=== PATIENT | female | born 1990 | race Hispanic/Latino ===

== ENCOUNTER 2020-01-15 23:41 | Emergency (ER) | payer OTHER ==
[~2020-01-15] VITALS: Ht 160 cm; Wt 104.3 kg
[~2020-01-15 23:41] MED LIST: CEPHALEXIN500 MG PO
--- NOTE | 2020-01-16 00:06 | Emergency Department Note ---
History of Present Illnes History of Present Illness Chief Complaint: Genitourinary History of Present Illness This is a 29 year old female dysuria . Onset (how long ago): day(s) (2) Location: suprapubic Quality: dull Radiation: Denies non-radiation, Denies back, Denies neck, Denies extremity, Denies abdomen, Denies periumbilical, Denies flank, Denies proximal, Denies distal, Denies other Severity: mild Onset quality: gradual Duration (how long): day(s) (2) Timing of current episode: constant Progression: worsening Chronicity: new Context: Denies recent illness, Denies recent surgery, Denies recent immobilization, Denies recent travel, Denies trauma/injury, Denies new medications, Denies hx of DVT/PE, Denies non-compliance w/ medications, Denies other Relieving factors: none Exacerbating factors: none Associated symptoms: Denies denies other symptoms, Denies confusion, Denies chest pain, Denies cough, Denies diaphoresis, Denies fever/chills, Denies headaches, Denies loss of appetite, Denies malaise, Denies nausea/vomiting, Denies rash, Denies seizure, Denies shortness of breath, Denies syncope, Denies weakness, Denies other Treatments prior to arrival: none Past Medical/Family History Physician Review I have reviewed the patient's past medical and family history. Any updates have been documented here. Past Medical History Past Medical History: None Past Surgical History: None Social History Smoking Cessation: Never Smoker Alcohol Use: None Other Last Tetanus: UNK Review of Systems Review of Systems Constitutional: Reports no symptoms EENTM: Reports no symptoms Cardiovascular: Reports no symptoms Respiratory: Reports no symptoms Gastrointestinal: Reports no symptoms Genitourinary: Reports as per HPI Musculoskeletal: Reports no symptoms Integumentary: Reports no symptoms Neurological: Reports no symptoms Psychological: Reports no symptoms Endocrine: Reports no symptoms Hematological/Lymphatic: Reports no symptoms Physical Exam Related Data Allergies: Coded Allergies: No Known Allergies (Unverified , 05/16/19) Vital signs reviewed: Yes Physical Exam CONSTITUTIONAL Constitutional: Present well-developed, Present well-nourished HENT HENT: Present normocephalic, Present atraumatic, Present oropharynx clear/moist, Present nose normal HENT L/R: Present left ext ear normal, Present right ext ear normal EYES Eyes: Reports PERRL, Reports conjunctivae normal NECK Neck: Present ROM normal PULMONARY Pulmonary: Present effort normal, Present breath sounds normal CARDIOVASCULAR Cardiovascular: Present regular rhythm, Present heart sounds normal, Present capillary refill normal, Present normal rate GASTROINTESTINAL Abdominal: Present soft, Present nontender, Present bowel sounds normal GENITOURINARY Genitourinary: Present exam deferred SKIN Skin: Present warm, Present dry MUSCULOSKELETAL Musculoskeletal: Present ROM normal NEUROLOGICAL Neurological: Present alert, Present oriented x 3, Present no gross motor or sensory deficits PSYCHOLOGICAL Psychological: Present mood/affect normal, Present judgement normal Assessment & Plan Medical Decision Making MDM uti cystitis Reassessment Reassessment better Assessment & Plan Final Impression: (1) Cystitis, acute (2) UTI (urinary tract infection) Depart Disposition: HOME, SELF-skilled nursing Meds Active Scripts Cephalexin (CEPHALEXIN) 500 Mg Capsule, 500 MG PO TID for 7 Days, #21 CAP Prov:NEELAM CHRISTIANSON MD 05/16/19 SUSAN MARTINEZ MD Jan 16, 2020 00:06
[2020-01-16] MEDS ORDERED: MACROBID 100 M100 MG PO (00:07)
--- OUTSIDE RECORDS SUMMARY | 2020-01-16 10:47 | XMS REPORT | Clinical Summary ---
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 unspecified chronicity, unspecified seasonality, unspecified trigger Active fluticasone (FLONASE) 50 Use 1 [place] 16 g 0 1 mcg/actuation nasal in each 7 sprayIndications: nostril Allergic rhinitis, daily. unspecified chronicity, unspecified seasonality, unspecified trigger Active Problems No known active problems Immunizations Name Administration Dates Next Due DTP Diphtheria, Tetanus, 11/15/1994, 01/16/1994, Pertussis Vaccine Hepatitis B Vaccine 12/15/1997, 12/11/1996, Hib Haemophilus 01/16/1994, 08/10/1992 Influenzae Type B Influenza Vaccine 03/12/2006 MMR Measles, Mumps, 12/14/1995, 01/16/1994 Rubella Vaccine PPD 11/10/2005 Poliovirus Ipv 12/14/1995, 11/15/1994, , 08/10/1992 Td Tetanus, diphtheria 12/13/2005 Toxoids Vaccine Tdap Tetanus, diphtheria, 11/10/2005 acellular pertussis Vaccine Varicella Vaccine Pedi In 01/07/1996 Clinic Family History Medical History Relation Name Comments Cancer Father pancreas cancer. Diabetes Father Arthritis Mother Asthma Mother Diabetes Mother Heart Mother Psychiatry Mother Hypothyroid Sister Relation Name Status Comments Father Mother Sister Social History Date Tobacco Use Types Packs/Day Years Used Never Smoker Smokeless Tobacco: Never Used Drinks/Week oz/Week Comments Alcohol Use No Food Insecurity Answer Date Recorded Within the past 12 months, you worried that your Never rosas e 03/14/2017 food would run out before you got money to buy more. Within the past 12 months, the food you bought Never true 03/14/2017 just didn't last and you didn't have mo naila to get more. Sex Assigned at Date Recorded Not on file Industry Job Start Date Occupation Not on file Not on file Not on file Travel End Travel History Travel Start No recent travel history available. Last Filed Vital Signs Not on file Plan of Treatment Health Maintenance Due Date Last Done Comments Cervical Cancer Scrn (3 09/04/2012 Yrs) IMM Influenza Seasonal 01/29/2020 03/12/2006 Oct to June (>/= 19 yrs) Results Not on fileafter 01/15/2019
--- OUTSIDE RECORDS SUMMARY | 2020-01-16 10:47 | XMS REPORT | Continuity of Care Document ---
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 Problems Condition Name Condition Details Condition Category Status Onset Date Resolution Date Last Treatment Date Treating Clinician Comments Source Acute cystitis Problem Active C [facility] Urinary tract infection Problem Active [facility] Allergies, Adverse Reactions, Alerts Allergy Name Allergy Type Status Severity Reaction(s) Onset Date Inacti ve Date Treating Clinician Comments Source No Known Allergies DA Active U 2014-10-31 00:00:[address] [facility] Family History Family Member Diagnosis Comments Start Date Stop Date Source Natural father Cancer [facility] Natural father Diabetes [facility] Natural mother Arthritis [facility] Natural mother Asthma [facility] Natural mother Diabetes [facility] Natural mother Heart [facility] Natural mother Psychiatry [facility] Natural sister Hypothyroid [facility] Social History Social Habit Start Date Stop Date Quantity Comments Source Sex Assigned At [facility] Alcohol intake 2018-10-02 00:00:00 2018-10-02 00:00:00 Current non-drinker of alcohol (finding) [facility] History SDOH Food Worry 2017-03-14 00:00:00 2017-03-14 00:00:00 1 [facility] History SDOH Food Scarcity 2017-03-14 00:00:00 2017-03-14 00:00:00 1 [facility] Smoking Status Start Date Stop Date Source Never smoker [facility] Medications Ordered Medication Name Filled Medication Name Start Date Stop Da te Current Medication? Ordering Clinician Indication Dosage Frequency Signature (SIG) Comments Components Source Nitrofurantoin Monohyd/M-Cryst (Macrobid 100 Mg Capsul e) 100 Mg CAPSULE Nitrofurantoin Monohyd/M-Cryst (Macrobid 100 Mg Capsule) 100 Mg CAPSULE 2020-01-16 00:07:00 Yes 100 Twice Daily With M eals [facility] Cephalexin Cephalexin 2019-05-15 23:10:00 Yes [address] A Day [facility] loratadine (CLARITIN) 10 mg tablet 2017-03-14 00:00:00 Yes Allergic rhinitis, unspecified chronicity, unspecified seasonality, unspecified trigger 10mg QD Take 1 tablet by mouth daily. [facility] fluticasone (FLONASE) 50 mcg/actuation nasal spray 2017-02 00:00:00 Yes Allergic rhinitis, unspecified chronicit y, unspecified seasonality, unspecified trigger 1{spray} QD Use 1 [place] in each nostril daily. [facility] Immunizations Ordered Immunization Name Filled Immunization Name Date Status Comments Source Influenza Vaccine 2006-03-12 00:00:00 Completed [facility] Td Tetanus, diphtheria Toxoids Vaccine 2005-12-13 00:00:00 [facility] Tdap Tetanus, diphtheria, acellular pertussis Vaccine 2005-11-10 00:00:00 Completed [facility] PPD 2005-11-10 00:00:00 Completed [facility] Hepatitis B Vaccine 1997-12-15 00:00:00 Completed [facility] Hepatitis B Vaccine 1996-12-11 00:00:00 Completed [facility] Varicella Vaccine Pedi In Clinic 1996-01-07 00:00:00 Compl eted [facility] MMR Measles, Mumps, Rubella Vaccine 1995-12-14 00:00:00 Co mpleted [facility] Poliovirus Ipv 1995-12-14 00:00:00 Completed [facility] DTP Diphtheria, Tetanus, Pertussis Vaccine 1994-11-15 00:0 0:00 Completed [facility] Poliovirus Ipv 1994-11-15 00:00:00 Completed [facility] DTP Diphtheria, Tetanus, Pertussis Vaccine 1994-01-16 00:0 0:00 Completed [facility] Hib Haemophilus Influenzae Type B 1994-01-16 00:00:00 Comp leted [facility] MMR Measles, Mumps, Rubella Vaccine 1994-01-16 00:00:00 Co mpleted [facility] Poliovirus Ipv 1994-01-16 00:00:00 Completed [facility] DTP Diphtheria, Tetanus, Pertussis Vaccine 1992-08-10 00:0 0:00 Completed [facility] Hib Haemophilus Influenzae Type B 1992-08-10 00:00:00 Comp leted [facility] Poliovirus Ipv 1992-08-10 00:00:00 Completed [facility] Hepatitis B Vaccine 1991 00:00:00 Completed [facility] Vital Signs Vital Name Observation Time Observation Value Comments Source Weight 2020-01-15 23:50:00 230 [lb_av] [facility] BMI (Body Mass Index) 2020-01-15 23:50:00 40.7 kg/m2 [facility] Procedures This patient has no known procedures. Plan of Care Planned Activity Planned Date Details Comments Source Future Scheduled Test 2020-01-29 00:00:00 IMM Influenza Seas onal Jan to June (>/= 19 yrs) [code = IMM Influenza Seasonal Jan to June (>/= 19 yrs)] [facility] Future Scheduled Test 2012-09-04 00:00:00 Screening for aleks gnant neoplasm of cervix (procedure) [code = [id number]] [facility] Instructions Urinary Tract Infection - Women [facility] Encounters Start Date/Time End Date/Time Encounter Type Admission Type Attendi [facility] Care Department Encounter ID Source 2020-01-16 00:00:00 2020-01-16 05:53:00 Departed Emergency Room [facility] [id number] [facility] 2019-05-15 22:39:00 2019-05-15 23:30:00 Departed Emergency Room [facility] [id number] [facility] 2017-03-15 00:00:00 2017-03-15 00:00:00 Outpatient [facility] [id number] [facility] 2017-03-14 10:00:55 2017-03-14 10:00:55 Outpatient [facility] [id number] [facility] Results This patient has no known results.
== END 2020-01-16 05:53 | disposition home or self-care (01) ==
LOC: FSED 01-16
DX: R30.0 Dysuria (principal); N30.00 Acute cystitis without hematuria
CPT/HCPCS: 81003; 99282

== ENCOUNTER 2020-05-01 14:37 | Emergency (ER) | payer OTHER ==
[~2020-05-01] VITALS: Ht 152.4 cm; Wt 104.3 kg
[~2020-05-01 14:37] MED LIST changes: +MACROBID 100 M100 MG PO
[2020-05-01] MEDS ORDERED: DIFLUCAN100 MG PO (15:08)
[2020-05-01] MEDS ORDERED: NYSTATIN15 GM TOP (15:08)
== END 2020-05-01 15:16 | disposition home or self-care (01) ==
LOC: FSED 14:48
DX: B37.3 Candidiasis of vulva and vagina (principal)
CPT/HCPCS: 81003; 81025; 99283

== ENCOUNTER 2021-06-28 18:23 | Emergency (ER) | payer OTHER ==
[~2021-06-28] VITALS: Ht 160 cm; Wt 113.9 kg
[~2021-06-28 18:23] MED LIST changes: +DIFLUCAN100 MG PO; +NYSTATIN15 GM TOP
[2021-06-28] MEDS ORDERED: KETOROLAC TROMETHAMINE 30 MG/ML VIAL IM STA (18:59)
[2021-06-28] MEDS ORDERED: NAPROSYN500 MG PO (19:03)
[2021-06-28] MEDS ORDERED: CYCLOBENZAPRINE5 MG PO (19:03)
[2021-06-28] MEDS ORDERED: KETOROLAC TROMETHAMINE 30 MG/ML VIAL ONE (19:18)
== END 2021-06-28 19:25 | disposition home or self-care (01) ==
LOC: FSED 18:55
DX: M54.16 Radiculopathy, lumbar region (principal); I10 Essential (primary) hypertension; E11.9 Type 2 diabetes mellitus without complications; E78.5 Hyperlipidemia, unspecified
CPT/HCPCS: 99282; J1885

== ENCOUNTER 2022-08-23 08:04 | Emergency (ER) | payer OTHER ==
[~2022-08-23] VITALS: Ht 152.4 cm; Wt 98.6 kg
[~2022-08-23 08:04] MED LIST changes: +CYCLOBENZAPRINE5 MG PO; +NAPROSYN500 MG PO
[2022-08-23] MEDS ORDERED: PREDNISONE20 MG PO ×2 (08:40→13:43)
[2022-08-23] MEDS ORDERED: VENTOLIN HFA18 GM INH ×2 (08:40→13:43)
[2022-08-23] MEDS ORDERED: AZITHROMYCIN250 MG PO ×2 (08:40→13:43)
== END 2022-08-23 08:44 | disposition home or self-care (01) ==
LOC: FSED 08:07
DX: R05.9 Cough, unspecified (principal); J40 Bronchitis, not specified as acute or chronic; H66.92 Otitis media, unspecified, left ear; I10 Essential (primary) hypertension; E11.9 Type 2 diabetes mellitus without complications; E78.5 Hyperlipidemia, unspecified
CPT/HCPCS: 99283